=== PATIENT | female | born 1970 | race Caucasian/White ===

== ENCOUNTER 2023-09-23 14:01 | Inpatient (IN) | payer MEDICAID, MEDICARE, OTHER ==
--- NOTE | 2023-09-23 14:17 | ED ---
General Adult HPI - General Stated complaint: Mental Health/Overdose Time Seen by Provider: 09/23/23 14:10 Source: patient, RN notes reviewed Mode of arrival: EMS Limitations: no limitations - History of Present Illness Initial comments: Patient is a 52-year-old female present to the emergency department with overdose. Patient states she has been depressed. Patient admits to taking 10 of her trazodone last night. Patient admits this was attempt to harm herself. Patient also did abrade her left arm and right leg. Unclear last tetanus immunization. No homicidal thoughts. No hallucinations. Patient states she does not drink alcohol, patient reports that she is sober. - Related Data Home Medications Medication Instructions Recorded Confirmed Albuterol Sulfate [Albuterol 2 puff INHALATION RT-QID PRN 09/23/23 09/23/23 Sulfate Hfa] Brexpiprazole [Rexulti] 4 mg PO DAILY 09/23/23 09/23/23 Dextroamphetamine/Amphetamine 20 mg PO BID 09/23/23 09/23/23 [Adderall] Ergocalciferol [Vitamin D2 (1250 1,250 mcg PO WEEKLY 09/23/23 09/23/23 Mcg = 10230 Iu)] Ferrous Sulfate [Feosol] 325 mg PO DAILY 09/23/23 09/23/23 Gabapentin 400 mg PO DAILY@1400 09/23/23 09/23/23 Gabapentin [Neurontin] 800 mg PO Q12H 09/23/23 09/23/23 Levothyroxine Sodium [Synthroid] 88 mcg PO DAILY 09/23/23 09/23/23 Meloxicam [Mobic] 15 mg PO DAILY PRN 09/23/23 09/23/23 OLANZapine [ZyPREXA] 5 mg PO HS 09/23/23 09/23/23 Pantoprazole Sodium [Protonix] 40 mg PO DAILY 09/23/23 09/23/23 Prazosin [Minipress] 5 mg PO BID 09/23/23 09/23/23 Propranolol HCl 80 mg PO BID 09/23/23 09/23/23 Tolterodine ER [Detrol LA] 4 mg PO DAILY 09/23/23 09/23/23 clonazePAM [KlonoPIN] 1 mg PO BID PRN 09/23/23 09/23/23 Allergies Allergy/AdvReac Type Severity Reaction Status Date / Time codeine Allergy Itching Verified 09/23/23 21:47 Review of Systems ROS Statement: Those systems with pertinent positive or pertinent negative responses have been documented in the HPI. ROS Other: All systems not noted in ROS Statement are negative. Constitutional: Denies: fever Eyes: Denies: eye pain ENT: Denies: ear pain Respiratory: Denies: cough Cardiovascular: Denies: chest pain Endocrine: Denies: fatigue Psychiatric: Reports: depression, suicidal thoughts Past Medical History Additional Past Medical History / Comment(s): tachycardia History of Any Multi-Drug Resistant Organisms: None Reported Past Surgical History: No Surgical Hx Reported Past Psychological History: Anxiety, Bipolar, Depression, PTSD Smoking Status: Never smoker Past Alcohol Use History: None Reported, Occasional Past Drug Use History: Marijuana General Exam Limitations: no limitations General appearance: alert Head exam: Present: normocephalic Eye exam: Present: normal appearance, PERRL Neck exam: Present: normal inspection Respiratory exam: Present: normal lung sounds bilaterally Cardiovascular Exam: Present: regular rate, normal rhythm GI/Abdominal exam: Present: soft. Absent: tenderness Extremities exam: Present: normal inspection Neurological exam: Present: alert. Absent: motor sensory deficit Psychiatric exam: Present: depressed Skin exam: Present: abrasion (Superficial left arm and right thigh) Course Vital Signs 09/23/23 09/23/23 14:07 21:44 Temperature 98.1 F Pulse Rate 86 62 Respiratory 16 16 Rate Blood Pressure 105/76 102/73 O2 Sat by Pulse 96 97 Oximetry EKG Findings - EKG Results: EKG: interpreted by ERMD (QTc 401), sinus rhythm, normal axis, normal QRS, normal ST/T Medical Decision Making - Medical Decision Making Was pt. sent in by a medical professional or institution (, PA, THERMIT WELDING MACHINE OPERATOR, urgent care, hospital, or [facility]...) When possible be specific @ -No Did you speak to anyone other than the patient for history (EMS, parent, family, police, friend...)? What history was obtained from this source @ -No Did you review nursing and triage notes (agree or disagree)? Why? @ -I reviewed and agree with nursing and triage notes Were old charts reviewed (outside hosp., previous admission, EMS record, old EKG, old radiological studies, urgent care reports/EKG's, [facility] records)? Report findings @ -No old charts were reviewed Differential Diagnosis (chest pain, altered mental status, abdominal pain women, abdominal pain men, vaginal bleeding, weakness, fever, dyspnea, syncope, headache, dizziness, GI bleed, back pain, seizure, CVA, palpatations, mental health, musculoskeletal)? @ -Differential Mental Health Depression, anxiety, bipolar, psychosis, schizophrenia, borderline personality, situational depression, adjustment disorder, behavioral disorder, brain tumor, malingering, substance abuse, encephalopathy, medication reaction, dementia, hyp othyroidism, degenerative neurologic disorder, lupus.... This is not meant to be all-inclusive list EKG interpreted by me (3pts min.). @ -As above X-rays interpreted by me (1pt min.). @ -None done CT interpreted by me (1pt min.). @ -None done U/S interpreted by me (1pt. min.). @ -None done What testing was considered but not performed or refused? (CT, X-rays, U/S, labs)? Why? @ -None What meds were considered but not given or refused? Why? @ -None Did you discuss the management of the patient with other professionals (professionals i.e. , PA, THERMIT WELDING MACHINE OPERATOR, lab, RT, psych nurse, social insurance specialist, cable splicer helper, teacher, staff weapons officer, disability case manager)? Give summary @ -Mental health work Was smoking cessation discussed for >3mins.? @ -No Was critical care preformed (if so, how long)? @ -No Were there social determinants of health that impacted care today? How? (Homelessness, low income, unemployed, alcoholism, drug addiction, transportation, low edu. Level, literacy, decrease access to med. care, halfway, rehab)? @ -No Was there de-escalation of care discussed even if they declined (Discuss DNR or withdrawal of care, Hospice)? DNR status @ -No What co-morbidities impacted this encounter? (DM, HTN, Smoking, COPD, CAD, Cancer, CVA, ARF, Chemo, Hep., AIDS, mental health diagnosis, sleep apnea, m orbid obesity)? @ -None Was patient admitted / discharged? Hospital course, mention meds given and route, prescriptions, significant lab abnormalities, going to OR and other pertinent info. @ -Patient medically cleared for mental health evaluation Undiagnosed new problem with uncertain prognosis? @ -No Drug Therapy requiring intensive monitoring for toxicity (Heparin, Nitro, Insulin, Cardizem)? @ -No Were any procedures done? @ -No Diagnosis/symptom? @ -Depression, trazodone overdose Acute, or Chronic, or Acute on Chronic? @ -Acute, acute Uncomplicated (without systemic symptoms) or Complicated (systemic symptoms)? @ -Default Side effects of treatment? @ -No Exacerbation, Progression, or Severe Exacerbation? @ -No Poses a threat to life or bodily function? How? (Chest pain, [place], [place], pneumonia, PE, COPD, DKA, ARF, appy, cholecystitis, CVA, Diverticulitis, Homicidal, Suicidal, threat to staff... and all critical care pts) @ -Threat with overdose - Lab Data Result diagrams: 09/23/23 14:31 09/23/23 14:31 Lab Results 09/23/23 09/23/23 09/23/23 Range/Units 14:31 14:31 14:31 WBC 5.9 (3.8-10.6) k/uL RBC 4.23 (3.80-5.40) m/uL Hgb 11.2 L (11.4-16.0) gm/dL Hct 34.7 (34.0-46.0) % MCV 82.0 (80.0-100.0) fL MCH 26.4 (25.0-35.0) pg MCHC 32.1 (31.0-37.0) g/dL RDW 15.0 (11.5-15.5) % Plt Count 240 (150-450) k/uL MPV 7.5 Neutrophils % 60 % Lymphocytes % 29 % Monocytes % 5 % Eosinophils % 4 % Basophils % 1 % Neutrophils # 3.5 (1.3-7.7) k/uL Lymphocytes # 1.7 (1.0-4.8) k/uL Monocytes # 0.3 (0-1.0) k/uL Eosinophils # 0.2 (0-0.7) k/uL Basophils # 0.1 (0-0.2) k/uL PT 11.6 (10.0-12.5) sec INR 1.1 (<1.2) Sodium (137-145) mmol/L Potassium (3.5-5.1) mmol/L Chloride (98-107) mmol/L Carbon Dioxide (22-30) mmol/L Anion Gap mmol/L BUN (7-17) mg/dL Creatinine (0.52-1.04) mg/dL Est GFR (CKD-EPI)AfAm (>60 ml/min/1.73 sqM) Est GFR (CKD-EPI)NonAf (>60 ml/min/1.73 sqM) Glucose (74-99) mg/dL Estimated Ave Glu mg/dL mg/dL Hemoglobin A1c (<=6.0) % Calcium (8.4-10.2) mg/dL Total Bilirubin (0.2-1.3) mg/dL AST (14-36) U/L ALT (4-34) U/L Alkaline Phosphatase (38-126) U/L Total Protein (6.3-8.2) g/dL Albumin (3.5-5.0) g/dL Triglycerides (0.00-149.00) mg/dL Cholesterol (0.00-200.00) mg/dL LDL Cholesterol, Calc (0.0-131.0) mg/dL VLDL Cholesterol, Calc (5.00-40.00) mg/dL HDL Cholesterol (40.00-60.00) mg/dL Cholesterol/HDL Ratio Ratio Urine Color Urine Appearance (Clear) Urine pH (5.0-8.0) Ur Specific [place] (1.001-1.035) Urine Protein (Negative) Urine Glucose (UA) (Negative) Urine Ketones (Negative) Urine Blood (Negative) Urine Nitrite (Negative) Urine Bilirubin (Negative) Urine Urobilinogen (<2.0) mg/dL Ur Leukocyte Esterase (Negative) Urine HCG, Qual Not Detected (Not Detectd) Salicylates mg/dL Urine Opiates Screen (NotDetected) Ur Oxycodone Screen (NotDetected) Urine Methadone Screen (NotDetected) Acetaminophen ug/mL Ur Barbiturates Screen (NotDetected) U Tricyclic Antidepress (NotDetected) Ur Phencyclidine Scrn (NotDetected) Ur Amphetamines Screen (NotDetected) U Methamphetamines Scrn (NotDetected) U Benzodiazepines Scrn (NotDetected) Urine Cocaine Screen (NotDetected) U Marijuana (THC) Screen (NotDetected) Serum Alcohol mg/dL SARS-CoV-2 (PCR) (Not Detectd) 09/23/23 09/23/23 09/23/23 Range/Units 14:31 14:31 14:31 WBC (3.8-10.6) k/uL RBC (3.80-5.40) m/uL Hgb (11.4-16.0) gm/dL Hct (34.0-46.0) % MCV (80.0-100.0) fL MCH (25.0-35.0) pg MCHC (31.0-37.0) g/dL RDW (11.5-15.5) % Plt Count (150-450) k/uL MPV Neutrophils % % Lymphocytes % % Monocytes % % Eosinophils % % Basophils % % Neutrophils # (1.3-7.7) k/uL Lymphocytes # (1.0-4.8) k/uL Monocytes # (0-1.0) k/uL Eosinophils # (0-0.7) k/uL Basophils # (0-0.2) k/uL PT (10.0-12.5) sec INR (<1.2) Sodium 137 (137-145) mmol/L Potassium 4.3 (3.5-5.1) mmol/L Chloride 107 (98-107) mmol/L Carbon Dioxide 28 (22-30) mmol/L Anion Gap 2 mmol/L BUN 15 (7-17) mg/dL Creatinine 0.82 (0.52-1.04) mg/dL Est GFR (CKD-EPI)AfAm >90 (>60 ml/min/1.73 sqM) Est GFR (CKD-EPI)NonAf 83 (>60 ml/min/1.73 sqM) Glucose 86 (74-99) mg/dL Estimated Ave Glu mg/dL mg/dL Hemoglobin A1c (<=6.0) % Calcium 8.7 (8.4-10.2) mg/dL Total Bilirubin 0.7 (0.2-1.3) mg/dL AST 22 (14-36) U/L ALT 16 (4-34) U/L Alkaline Phosphatase 82 (38-126) U/L Total Protein 6.2 L (6.3-8.2) g/dL Albumin 3.9 (3.5-5.0) g/dL Triglycerides 112.00 (0.00-149.00) mg/dL Cholesterol 212.00 H (0.00-200.00) mg/dL LDL Cholesterol, Calc 119.1 (0.0-131.0) mg/dL VLDL Cholesterol, Calc 22.40 (5.00-40.00) mg/dL HDL Cholesterol 70.50 H (40.00-60.00) mg/dL Cholesterol/HDL Ratio 3.01 Ratio Urine Color Urine Appearance (Clear) Urine pH (5.0-8.0) Ur Specific [place] (1.001-1.035) Urine Protein (Negative) Urine Glucose (UA) (Negative) Urine Ketones (Negative) Urine Blood (Negative) Urine Nitrite (Negative) Urine Bilirubin (Negative) Urine Urobilinogen (<2.0) mg/dL Ur Leukocyte Esterase (Negative) Urine HCG, Qual (Not Detectd) Salicylates <1.0 mg/dL Urine Opiates Screen Not Detected (NotDetected) Ur Oxycodone Screen Not Detected (NotDetected) Urine Methadone Screen Not Detected (NotDetected) Acetaminophen <10.0 ug/mL Ur Barbiturates Screen Not Detected (NotDetected) U Tricyclic Antidepress Not Detected (NotDetected) Ur Phencyclidine Scrn Not Detected (NotDetected) Ur Amphetamines Screen Not Detected (NotDetected) U Methamphetamines Scrn Not Detected (NotDetected) U Benzodiazepines Scrn Not Detected (NotDetected) Urine Cocaine Screen Not Detected (NotDetected) U Marijuana (THC) Screen Detected H (NotDetected) Serum Alcohol <10 mg/dL SARS-CoV-2 (PCR) (Not Detectd) 09/23/23 09/23/23 09/23/23 Range/Units 14:31 14:31 19:00 WBC (3.8-10.6) k/uL RBC (3.80-5.40) m/uL Hgb (11.4-16.0) gm/dL Hct (34.0-46.0) % MCV (80.0-100.0) fL MCH (25.0-35.0) pg MCHC (31.0-37.0) g/dL RDW (11.5-15.5) % Plt Count (150-450) k/uL MPV Neutrophils % % Lymphocytes % % Monocytes % % Eosinophils % % Basophils % % Neutrophils # (1.3-7.7) k/uL Lymphocytes # (1.0-4.8) k/uL Monocytes # (0-1.0) k/uL Eosinophils # (0-0.7) k/uL Basophils # (0-0.2) k/uL PT (10.0-12.5) sec INR (<1.2) Sodium (137-145) mmol/L Potassium (3.5-5.1) mmol/L Chloride (98-107) mmol/L Carbon Dioxide (22-30) mmol/L Anion Gap mmol/L BUN (7-17) mg/dL Creatinine (0.52-1.04) mg/dL Est GFR (CKD-EPI)AfAm (>60 ml/min/1.73 sqM) Est GFR (CKD-EPI)NonAf (>60 ml/min/1.73 sqM) Glucose (74-99) mg/dL Estimated Ave Glu mg/dL 97 mg/dL Hemoglobin A1c 5.0 (<=6.0) % Calcium (8.4-10.2) mg/dL Total Bilirubin (0.2-1.3) mg/dL AST (14-36) U/L ALT (4-34) U/L Alkaline Phosphatase (38-126) U/L Total Protein (6.3-8.2) g/dL Albumin (3.5-5.0) g/dL Triglycerides (0.00-149.00) mg/dL Cholesterol (0.00-200.00) mg/dL LDL Cholesterol, Calc (0.0-131.0) mg/dL VLDL Cholesterol, Calc (5.00-40.00) mg/dL HDL Cholesterol (40.00-60.00) mg/dL Cholesterol/HDL Ratio Ratio Urine Color Colorless Urine Appearance Clear (Clear) Urine pH 7.5 (5.0-8.0) Ur Specific [place] 1.010 (1.001-1.035) Urine Protein Negative (Negative) Urine Glucose (UA) Negative (Negative) Urine Ketones Negative (Negative) Urine Blood Negative (Negative) Urine Nitrite Negative (Negative) Urine Bilirubin Negative (Negative) Urine Urobilinogen <2.0 (<2.0) mg/dL Ur Leukocyte Esterase Negative (Negative) Urine HCG, Qual (Not Detectd) Salicylates mg/dL Urine Opiates Screen (NotDetected) Ur Oxycodone Screen (NotDetected) Urine Methadone Screen (NotDetected) Acetaminophen ug/mL Ur Barbiturates Screen (NotDetected) U Tricyclic Antidepress (NotDetected) Ur Phencyclidine Scrn (NotDetected) Ur Amphetamines Screen (NotDetected) U Methamphetamines Scrn (NotDetected) U Benzodiazepines Scrn (NotDetected) Urine Cocaine Screen (NotDetected) U Marijuana (THC) Screen (NotDetected) Serum Alcohol mg/dL SARS-CoV-2 (PCR) Not Detected (Not Detectd) Disposition Clinical Impression: Depression, Overdose of trazodone Disposition: TRANSFER TO PSYCH HOSP/UNIT Is patient prescribed a controlled substance at d/c from ED?: No
[2023-09-23 14:53] LABS: Basophils # (A) 0.1 k/uL (0-0.2); Basophils % (A) 1 %; Eosinophils # (A) 0.2 k/uL (0-0.7); Eosinophils % (A) 4 %; HCT 34.7 % (34.0-46.0); HGB 11.2 gm/dL (11.4-16.0); Lymphocytes # (A) 1.7 k/uL (1.0-4.8); Lymphocytes % (A) 29 %; MCH 26.4 pg (25.0-35.0); MCHC 32.1 g/dL (31.0-37.0); Mean Platelet Volume 7.5; Monocytes # (A) 0.3 k/uL (0-1.0); Monocytes % (A) 5 %; Neutrophils # (A) 3.5 k/uL (1.3-7.7); Neutrophils % (A) 60 %; Platelet Count 240 k/uL (150-450); RBC 4.23 m/uL (3.80-5.40); WBC 5.9 k/uL (3.8-10.6)
[2023-09-23 14:58] LABS: INR 1.1 (<1.2); Prothrombin Time 11.6 sec (10.0-12.5)
[2023-09-23 15:01] LABS: ALT 16 U/L (4-34); AST 22 U/L (14-36); Acetaminophen <10.0 ug/mL; African American GFR (CKD) >90 (>60 ml/min/1.73 sqM); Albumin 3.9 g/dL (3.5-5.0); Alcohol <10 mg/dL; Alkaline Phosphatase 82 U/L (38-126); Anion Gap 2 mmol/L; Blood Urea Nitrogen 15 mg/dL (7-17); Calcium 8.7 mg/dL (8.4-10.2); Carbon Dioxide 28 mmol/L (22-30); Chloride 107 mmol/L (98-107); Glucose 86 mg/dL (74-99); Non-African American GFR(CKD) 83 (>60 ml/min/1.73 sqM); Potassium 4.3 mmol/L (3.5-5.1); Salicylate <1.0 mg/dL; Sodium 137 mmol/L (137-145); Total Bilirubin 0.7 mg/dL (0.2-1.3); Total Protein 6.2 g/dL (6.3-8.2)
[2023-09-23 15:04] LABS: Amphetamine Screen,Urine Not Detected (NotDetected); Barbiturate Screen,Urine Not Detected (NotDetected); Benzodiazepines Screen,Urine Not Detected (NotDetected); Cocaine Screen,Urine Not Detected (NotDetected); Methadone Screen, Urine Not Detected (NotDetected); Opiate Screen,Urine Not Detected (NotDetected); Oxycodone Screen, Urine Not Detected (NotDetected); Phencyclidine Screen,Urine Not Detected (NotDetected); Tricyclic Antidepressant,Urine Not Detected (NotDetected); Urn Cannabinoid Scrn Detected (NotDetected)
[2023-09-23] MEDS: DIPH,PERTUS(ACELL)TETVAC-LF 0.5 ML VIAL IM ONE (21:43)
[2023-09-23] MEDS ORDERED: ALBUTEROL INHALER 60 PUFF/8 GM INHALER (MHU) INHALATION PRN (23:55)
[2023-09-23] MEDS ORDERED: ACETAMINOPHEN TAB 325 MG TAB PO PRN (23:57)
[2023-09-23] MEDS ORDERED: MAGNESIUM HYDROXIDE 2,400 MG/30 ML CUP PO PRN (23:57)
[2023-09-24] MEDS: LEVOTHYROXINE 88 MCG TAB PO SCH (05:54)
[2023-09-24 08:30] LABS: Appearance,Urine Clear (Clear); Bilirubin,Urine Negative (Negative); Blood,Urine Negative (Negative); Color,Urine Colorless; Glucose,Urine (UA) Negative (Negative); Ketones,Urine Negative (Negative); Leukocyte Esterase,Urine Negative (Negative); Nitrite,Urine Negative (Negative); PH, Urine 7.5 (5.0-8.0); Protein,Urine Negative (Negative); Urobilinogen,Urine <2.0 mg/dL (<2.0)
[2023-09-24] MEDS: NON FORMULARY DRUG (Brexpiprazole [Rexulti] 4 MG Tablet) PO SCH (09:17)
[2023-09-24] MEDS: FERROUS SULFATE 325 MG TAB PO SCH (09:18)
[2023-09-24] MEDS: PANTOPRAZOLE 40 MG TABLET PO SCH (09:19)
[2023-09-24] MEDS: OXYBUTYNIN 10 MG TAB.ER.24 PO SCH (09:19)
[2023-09-24] MEDS: PRAZOSIN 1 MG CAP PO SCH (09:19)
[2023-09-24] MEDS: GABAPENTIN 400 MG CAP PO SCH ×3 (09:19→20:43)
[2023-09-24] MEDS: PROPRANOLOL 40 MG TAB PO SCH (09:20)
[2023-09-24] MEDS ORDERED: NICOTINE GUM (POLACRILEX) 2 MG GUM BUCCAL PRN (10:38)
[2023-09-24 11:31] LABS: Chol/HDL Ratio 3.01 Ratio; LDL Cholesterol,Calculated 119.1 mg/dL (0.0-131.0)
[2023-09-24] MEDS: clonazePAM 1 MG TAB PO PRN (17:43)
--- NOTE | 2023-09-24 20:57 | P.HP ---
Psychiatric H&P - . H&P Date: 09/24/23 History & Physical: Allergies Allergy/AdvReac Type Severity Reaction Status Date / Time codeine Allergy Itching Verified 09/23/23 21:47 Vital Signs Temp 96.6 F L 09/24/23 00:57 Pulse 104 H 09/24/23 09:17 Resp 18 09/24/23 00:57 BP 103/60 09/24/23 09:17 Pulse Ox 98 09/24/23 09:19 FiO2 Intake & Output 09/24/23 09/24/23 09/25/23 06:59 18:59 06:59 Weight 73.964 kg Laboratory Last Values WBC 5.9 k/uL (3.8-10.6) 09/23/23 14:31 RBC 4.23 m/uL (3.80-5.40) 09/23/23 14:31 Hgb 11.2 gm/dL (11.4-16.0) L 09/23/23 14:31 Hct 34.7 % (34.0-46.0) 09/23/23 14:31 MCV 82.0 fL (80.0-100.0) 09/23/23 14:31 MCH 26.4 pg (25.0-35.0) 09/23/23 14:31 MCHC 32.1 g/dL (31.0-37.0) 09/23/23 14:31 RDW 15.0 % (11.5-15.5) 09/23/23 14:31 Plt Count 240 k/uL (150-450) 09/23/23 14:31 MPV 7.5 09/23/23 14:31 Neutrophils % 60 % 09/23/23 14:31 Lymphocytes % 29 % 09/23/23 14:31 Monocytes % 5 % 09/23/23 14:31 Eosinophils % 4 % 09/23/23 14:31 Basophils % 1 % 09/23/23 14:31 Neutrophils # 3.5 k/uL (1.3-7.7) 09/23/23 14:31 Lymphocytes # 1.7 k/uL (1.0-4.8) 09/23/23 14:31 Monocytes # 0.3 k/uL (0-1.0) 09/23/23 14:31 Eosinophils # 0.2 k/uL (0-0.7) 09/23/23 14:31 Basophils # 0.1 k/uL (0-0.2) 09/23/23 14:31 PT 11.6 sec (10.0-12.5) 09/23/23 14:31 INR 1.1 (<1.2) 09/23/23 14:31 Sodium 137 mmol/L (137-145) 09/23/23 14:31 Potassium 4.3 mmol/L (3.5-5.1) 09/23/23 14:31 Chloride 107 mmol/L (98-107) 09/23/23 14:31 Carbon Dioxide 28 mmol/L (22-30) 09/23/23 14:31 Anion Gap 2 mmol/L 09/23/23 14:31 BUN 15 mg/dL (7-17) 09/23/23 14:31 Creatinine 0.82 mg/dL (0.52-1.04) 09/23/23 14:31 Est GFR (CKD-EPI)AfAm >90 (>60 ml/min/1.73 sqM) 09/23/23 14:31 Est GFR (CKD-EPI)NonAf 83 (>60 ml/min/1.73 sqM) 09/23/23 14:31 Glucose 86 mg/dL (74-99) 09/23/23 14:[address] Glu mg/dL 97 mg/dL 09/23/23 14:31 Hemoglobin A1c 5.0 % (<=6.0) 09/23/23 14:31 Calcium 8.7 mg/dL (8.4-10.2) 09/23/23 14:31 Total Bilirubin 0.7 mg/dL (0.2-1.3) 09/23/23 14:31 AST 22 U/L (14-36) 09/23/23 14:31 ALT 16 U/L (4-34) 09/23/23 14:31 Alkaline Phosphatase 82 U/L (38-126) 09/23/23 14:31 Total Protein 6.2 g/dL (6.3-8.2) L 09/23/23 14:31 Albumin 3.9 g/dL (3.5-5.0) 09/23/23 14:31 Triglycerides 112.00 mg/dL (0.00-149.00) 09/23/23 14: Cholesterol 212.00 mg/dL (0.00-200.00) H 09/23/23 14:31 LDL Cholesterol, Calc 119.1 mg/dL (0.0-131.0) 09/23/23 14:31 VLDL Cholesterol, Calc 22.40 mg/dL (5.00-40.00) 09/23/23 14: HDL Cholesterol 70.50 mg/dL (40.00-60.00) H 09/23/23 14:31 Cholesterol/HDL Ratio 3.01 Ratio 09/23/23 14:31 Urine Color Colorless 09/23/23 14:31 Urine Appearance Clear (Clear) 09/23/23 14: Urine pH 7.5 (5.0-8.0) 09/23/23 14: Ur Specific [place] 1.010 (1.001-1.035) 09/23/23 14:31 Urine Protein Negative (Negative) 09/23/23 14:31 Urine Glucose (UA) Negative (Negative) 09/23/23 14:31 Urine Ketones Negative (Negative) 09/23/23 14:31 Urine Blood Negative (Negative) 09/23/23 14:31 Urine Nitrite Negative (Negative) 09/23/23 14:31 Urine Bilirubin Negative (Negative) 09/23/23 14: Urine Urobilinogen <2.0 mg/dL (<2.0) 09/23/23 14:31 Ur Leukocyte Esterase Negative (Negative) 09/23/23 14:31 Urine HCG, Qual Not Detected (Not Detectd) 09/23/23 14:31 Salicylates <1.0 mg/dL 09/23/23 14:31 Urine Opiates Screen Not Detected (NotDetected) 09/23/23 14:31 Ur Oxycodone Screen Not Detected (NotDetected) 09/23/23 14:31 Urine Methadone Screen Not Detected (NotDetected) 09/23/23 14:31 Acetaminophen <10.0 ug/mL 09/23/23 14:31 Ur Barbiturates Screen Not Detected (NotDetected) 09/23/23 14:31 U Tricyclic Antidepress Not Detected (NotDetected) 09/23/23 14:31 Ur Phencyclidine Scrn Not Detected (NotDetected) 09/23/23 14:31 Ur Amphetamines Screen Not Detected (NotDetected) 09/23/23 14:31 U Methamphetamines Scrn Not Detected (NotDetected) 09/23/23 14:31 U Benzodiazepines Scrn Not Detected (NotDetected) 09/23/23 14:31 Urine Cocaine Screen Not Detected (NotDetected) 09/23/23 14:31 U Marijuana (THC) Screen Detected (NotDetected) H 09/23/23 14:31 Serum Alcohol <10 mg/dL 09/23/23 14:31 SARS-CoV-2 (PCR) Not Detected (Not Detectd) 09/23/23 19:00 09/24/23 20:57 Psychiatric Evaluation Identifying Data: Ms. Atkinson is a 52 years old, single, white female, who lives in a house with her partner. Chief Complaint: I took overdose of pills History of Psychiatric Illness- The patient noted that she was in the hospital 2 months ago for depression. She was in the hospital for 10 days. The patient noted that she does not know what made her take overdose of pills. She attributed to domestic issues. The patient reported that she was feeling very sad, not sleeping, lost appetite, loss of interest, social isolation, crying, tired, hopeless, and helpless. The patient t ook overdose of Trazodone. The patient does not know who called the police. The police came to her home and brought her to the ER. The patient noted that she has been depressed since age 16. The patient noted that she did not receive any help till age 31. She was in out-pt treatment. She saw a counselor and a psychiatrist. At age 36 she was admitted to the hospital for depression. She has had 5-6 admissions since then. All these admissions were for Depression. She never experienced symptoms of hearing voices or feeling paranoid. She reported 2-3 suicidal behavior by cutting herself or taking overdose of pills. She reported taking Prozac, Depakote, Zoloft, Effexor, Paxil, Risperdal, Cymbalta, Klonopin, and Adderall. The patient noted that Comfort Line works best for her depression. She has been diagnosed with PTSD, Bipolar disorder, Depression. Past Psychiatric History: As stated above. Past Medication History: As stated above. Leading questions: The patient admitted to Depression and Anxiety. Denied SI or HI. 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 Her longest sobriety is for 5 years. She smokes marijuana occasionally. Tobacco use: None. Past Medical history: Tachycardia. Family History of Psychiatric Disorder: Mother and maternal grand-mother suffer from depression. No h/o suicide or homicide in blood relatives. Social History and Family History: The patient was born and raised in [place], [place]. She has no siblings. She got her GED. 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 Never . Has no children. OTC: None. Allergies: Codeine. Objective: MSE: Alert and attentive. Orientation times three Dressed and Groomed: Appropriately. Pleasant and cooperative. Psychomotor Activity: Normal. Speech: Normal in tone, quality, and quantity. Mood: Depressed and anxious. Affect; Sad and subdued. SI or HI: None. Perceptual disturbance: None. Thought Content: No paranoia or other delusional thinking noted. Thought Process: Normal. Cognition: Intact Judgment and Insight: Poor AIMS: Normal Labs: Available labs reviewed. Diagnosis: Major depressive disorder, severe, recurrent. PTSD Plan and Recommendations: Continue current Medications. Monitor MS and side effects of medications and adjust medications accordingly. Provide supportive psychotherapy and psychoeducation. The patient provided psychoeducation. Te patient provided with substance abuse counselling and advised to attend AA/NA The patient to attend partida [facility]. CBC with Diff, CMP, TSH, Lipid Profile, HbA1c, EKG, Test ordered. Medication Consent with explanation of risk/benefits and side effects: Explained and obtained.
[2023-09-24] MEDS: MAG HYDROX/AL HYDROX/SIMETH 355 ML BOTTLE PO PRN (23:40)
--- NOTE | 2023-09-25 13:38 | P.PN ---
Progress Note - Text Progress Note Date: 09/25/23 Follow-up Mediation Review Chief Complaint: I am too tired Subjective: The patient noted that she was up all night because her roommate kept getting up every hour. She is catching on her sleep and feeling tired. She reported doing better than yesterday. The patient had no side effects. Complaint since yesterday: No new complaints today. The patient has did not group today but she intends to attend later. The patient participation is limited. The interaction with staff and peers is limited. The patient is compliant with medications. recommendations. Leading questions: The patient admitted to Depression and Anxiety. Denied SI or HI. Denied symptoms consistent with psychosis Sleep and Appetite: Fair. Change in family/ living/job/financial/daily routine: No change. Change in medical condition: the patient seems to be having some questionable aspiration after the overdose. She has been ordered chest X-ray by her PCP, who is on staff here. Change in medications: No change. Side effects from Medications: None. Allergies: No change. Objective- MSE: Alert and attentive. Orientation times three. Dressed and Groomed: Appropriately. Pleasant and cooperative. Psychomotor Activity: Normal. Speech: Normal in tone, quality, and quantity. Mood: Depressed and anxious. Affect: Consistent with mood. SI or HI: None. Perceptual disturbance: None. Thought Content: No paranoia or other delusional thinking noted. Thought Process: Normal. Cognition: Intact Judgment and Insight: Good AIMS: Normal. Labs: No new labs. Diagnosis: Plan and Recommendations: Continue current Medications. Monitor MS and side effects of medications and adjust medications accordingly. Provide supportive psychotherapy. The patient provided psychoeducation and advised The patient provided Substance abuse counseling. Smoke cessation therapy. The patient to attend partida activities. CBC with Diff, CMP, TSH, Lipid Profile, HbA1c, EKG, Test ordered. Medication Consent with explanation of risk/benefits and side effects: Explained and obtained.
--- NOTE | 2023-09-25 18:18 | P.HPIM ---
History of Present Illness H&P Date: 09/25/23 Chief Complaint: Suicidal, depression This is a 52-year-old female who presented to the ER with depression and overdosed. Reports she took 10 trazodone pills. Reports she has been overwhelmed with personal and financial stress. Does not recall if she passed out. reports she woke up to the police in her house and was transferred to our ER. Toxicology screen reported THC, less than 1 of salicylates , less than 10 of acetaminophen and less than 10 alcohol .denies chest pain, palpitations or shortness of breath. Denies cough, congestion. Maintaining O2 sats in the 90s on room air. Viral studies negative. Hemoglobin, electrolytes and renal function stable. Hemoglobin A1c 5. reports positive diet intake, mild nausea, no emesis. Complains of carpal tunnel syndrome-neuropathy. Tylenol and Neurontin in place. afebrile. No bradycardia. Review of Systems ROS Statement: Those systems with pertinent positive or pertinent negative responses have been documented in the HPI. ROS Other: All systems not noted in ROS Statement are negative. All systems: negative Constitutional: Denies chills, Denies fever Eyes: denies blurred vision, denies pain Ears, nose, mouth and throat: Denies headache, Denies sore throat Cardiovascular: Denies chest pain, Denies shortness of breath Respiratory: Denies cough Gastrointestinal: Denies abdominal pain, Denies diarrhea, Denies nausea, Denies vomiting Genitourinary: Denies dysuria, Denies hematuria Musculoskeletal: Denies myalgias Integumentary: Denies pruritus, Denies rash Neurological: Denies numbness, Denies weakness Psychiatric: Reports anxiety, Reports depression, Reports suicidal ideation Endocrine: Denies fatigue, Denies weight change Past Medical History Additional Past Medical History / Comment(s): tachycardia History of Any Multi-Drug Resistant Organisms: None Reported Past Surgical History: No Surgical Hx Reported Additional Past Surgical History / Comment(s): Bariatric Surgery 2019 Past Anesthesia/Blood Transfusion Reactions: No Reported Reaction Past Psychological History: Anxiety, Bipolar, Depression, PTSD Smoking Status: Never smoker Past Alcohol Use History: None Reported, Occasional Past Drug Use History: Marijuana Medications and Allergies Home Medications Medication Instructions Recorded Confirmed Type Albuterol Sulfate [Albuterol 2 puff INHALATION RT-QID PRN 09/23/23 09/23/23 History Sulfate Hfa] Brexpiprazole [Rexulti] 4 mg PO DAILY 09/23/23 09/23/23 History Dextroamphetamine/Amphetamine 20 mg PO BID 09/23/23 09/23/23 History [Adderall] Ergocalciferol [Vitamin D2 (1250 1,250 mcg PO WEEKLY 09/23/23 09/23/23 History Mcg = 96772 Iu)] Ferrous Sulfate [Feosol] 325 mg PO DAILY 09/23/23 09/23/23 History Gabapentin 400 mg PO DAILY@1400 09/23/23 09/23/23 History Gabapentin [Neurontin] 800 mg PO Q12H 09/23/23 09/23/23 History Levothyroxine Sodium [Synthroid] 88 mcg PO DAILY 09/23/23 09/23/23 History Meloxicam [Mobic] 15 mg PO DAILY PRN 09/23/23 09/23/23 History OLANZapine [ZyPREXA] 5 mg PO HS 09/23/23 09/23/23 History Pantoprazole Sodium [Protonix] 40 mg PO DAILY 09/23/23 09/23/23 History Prazosin [Minipress] 5 mg PO BID 09/23/23 09/23/23 History Propranolol HCl 80 mg PO BID 09/23/23 09/23/23 History Tolterodine ER [Detrol LA] 4 mg PO DAILY 09/23/23 09/23/23 History clonazePAM [KlonoPIN] 1 mg PO BID PRN 09/23/23 09/23/23 History Allergies Allergy/AdvReac Type Severity Reaction Status Date / Time codeine Allergy Itching Verified 09/23/23 21:47 Physical Exam General: well nourished, well developed, NAD. Teary-eyed. vitals reviewed Eyes: PERRL, EOMI, conjunctiva normal HENT: normocephalic, mucus membranes moist Neck: supple, no JVD Lungs: normal respiratory effort, no wheezes or rales CV: Regular rate and rhythm, no murmur. Peripheral pulses 2+ Abdomen: soft, nondistended, no organomegaly Lymph: no cervical or axillary LAD Skin: warm and dry. Neuro: A&Ox3, depressed mood and affect. Results CBC & Chem 7: 09/23/23 14:31 09/23/23 14:31 Thrombosis Risk Factor Assmnt - Choose All That Apply Any of the Below Risk Factors Present?: Yes Each Factor Represents 1 point: Age 41-60 years, Obesity (BMI >25) Other Risk Factors: No Thrombosis Risk Factor Assessment Total Risk Factor Score: 2 Thrombosis Risk Factor Assessment Level: Low Risk Assessment and Plan Assessment: Suicidal, suicide attempt with overdose of trazodone Major depressive disorder, severe, recurrent Plan: Continue on current medication resume ,monitoring and symptomatic treatment. O2 sat this morning 92% on room air, chest x-ray ordered. PPI in place for GI prophylaxis. The impression and plan of care has been dictated as directed. : I performed a history and examination of this patient, discussed the same with the dictator. I agree with the dictator's note ,documented as a scribe. Any additional findings or plans will be noted.
[2023-09-26] MEDS: IBUPROFEN 600 MG TAB PO PRN (07:05)
--- NOTE | 2023-09-26 07:28 | XR ---
EXAMINATION TYPE: XR chest 1V portable DATE OF EXAM: 09/25/2023 COMPARISON: NONE HISTORY: Hypoxia TECHNIQUE: Single frontal view of the chest is obtained. FINDINGS: Left lower lobe consolidation and small pleural effusion. Heart size upper limits of taisha l. No overt failure. No pneumothorax. IMPRESSION: Left lower lobe infiltrate and small pleural effusion.
[2023-09-26 09:47] VITALS: TEMP 97.7
--- NOTE | 2023-09-26 10:53 | P.PN ---
Progress Note - Text Progress Note Date: 09/26/23 Follow-up Mediation Review Chief Complaint: I did not sleep last night Subjective: The patient noted that she was up all night. She could not sleep. The patient requested for Zyprexa. She been taking Rexulti in the morning. It is being changed to bedtime. The patient explained that two antipsychotic is not good for her. The patient understood and consented. The patient noted that she is feeling much better. She went to all the groups yesterday. She appeared in better spirits. She reported no side effects. Complaint since yesterday: No new complaints today. The patient is attending group. . The patient participation is adequate. The interaction with staff and peers is improved. The patient is compliant with treatment recommendations. Leading questions: The patient admitted to Depression and Anxiety. Denied SI or HI. Denied symptoms consistent with psychosis Sleep and Appetite: Fair. Change in family/ living/job/financial/daily routine: No change. Change in medical condition: No change. Change in medications: No change. Side effects from Medications: None. Allergies: No change. Objective- MSE: Alert and attentive. Orientation times three. Dressed and Groomed: Appropriately. Pleasant and cooperative. Psychomotor Activity: Normal. Speech: Normal in tone, quality, and quantity. Mood: Depressed and anxious. Affect: Consistent with mood. SI or HI: None. Perceptual disturbance: None. Thought Content: No paranoia or other delusional thinking noted. Thought Process: Normal. Cognition: Intact Judgment and Insight: Good AIMS: Normal. Labs: No new labs. Diagnosis: No change. Plan and Recommendations: Continue current Medications. Monitor MS and side effects of medications and adjust medications accordingly. Provide supportive psychotherapy. The patient provided psychoeducation and advised The patient provided Substance abuse counseling. Smoke cessation therapy. The patient to attend partida activities. CBC with Diff, CMP, TSH, Lipid Profile, HbA1c, EKG, Test ordered. Medication Consent with explanation of risk/benefits and side effects: Explained and obtained.
[2023-09-26] MEDS: MELOXICAM 7.5 MG TAB PO PRN (21:00)
[2023-09-26] MEDS: Brexpiprazole [Rexulti] 4 MG PO SCH (21:53)
[2023-09-26] MEDS: OLANZapine 5 MG TAB PO PRN (22:32)
[2023-09-27 07:23] VITALS: RESP 16
[2023-09-27 09:47] VITALS: BP 117/75; PULSE 94
--- NOTE | 2023-09-27 15:44 | P.DS ---
Providers Date of admission: 09/23/23 21:25 Expected date of discharge: 09/27/23 Attending physician: Tom Wolff MD Consults: 09/23/23 23:57 Consult Physician Routine Consulting Provider: Cipriano Rodríguez Consult Reason/Comments: H&P and medical Do you want consulting provider notified?: Yes, Notify in am Primary care physician: Cipriano Rodríguez MD - Discharge Diagnosis(es) (1) Major depressive disorder, recurrent severe without psychotic features Status: Acute Priority: High (2) PTSD (post-traumatic stress disorder) Status: Acute Priority: Medium Hospital Course: Discharge Summary HPI: Identifying Data: Ms. Atkinson is a 52 years old, single, white female, who lives in a house with her partner. Chief Complaint: I took overdose of pills History of Psychiatric Illness- The patient noted that she was in the hospital 2 months ago for depression. She was in the hospital for 10 days. The patient noted that she does not know what made her take overdose of pills. She attributed to domestic issues. The patient reported that she was feeling very sad, not sleeping, lost appetite, loss of interest, social isolation, crying, tired, hopeless, and helpless. The patient took overdose of Trazodone. The patient does not know who called the police. The police came to her home and brought her to the ER. The patient noted that she has been depressed since age 16. The patient noted that she did not receive any help till age 31. She was in out-pt treatment. She saw a counselor and a psychiatrist. At age 36 she was admitted to the hospital for depression. She has had 5-6 admissions since then. All these admissions were for Depression. She never experienced symptoms of hearing voices or feeling paranoid. She reported 2-3 suicidal behavior by cutting herself or taking overdose of pills. She reported taking Prozac, Depakote, Zoloft, Effexor, Paxil, Risperdal, Cymbalta, Klonopin, and Adderall. The patient noted that Rexulti works best for her depression. She has been diagnosed with PTSD, Bipolar disorder, Depression. Past Psychiatric History: As stated above. Past Medication History: As stated above. Leading questions: The patient admitted to Depression and Anxiety. Denied SI or HI. 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 Her longest sobriety is for 5 years. She smokes marijuana occasionally. Tobacco use: None. Past Medical history: Tachycardia. Hospital Course: After admission, the patient was involved in pharmacotherapy, partida milieu, and individual psychodynamic psychotherapy. The patient was started on her home medications. Zyprexa was stopped. The dose was titrated to obtain the desire effects. The patient tolerated medications well without any side effects. The patient was also involved in partida activities. The patient attended the groups and participated well. The patient interacted with peers and staff well. The patient slowly started showing improvement. The hospital course was uneventful. The patient symptoms of depression, suicidal and homicidal ideations abated. The psychosis improved. The patient was stable to be discharged to out-patient care. The patient did not have any guns or weapons in possession at home. MSE: Alert and attentive. Orientation times three Dressed and Groomed: Appropriately. Pleasant and cooperative. Psychomotor Activity: Normal. Speech: Normal in tone, quality, and quantity. Mood: Depressed and anxious. Affect; Sad and subdued. SI or HI: None. Perceptual disturbance: None. Thought Content: No paranoia or other delusional thinking noted. Thought Process: Normal. Cognition: Intact Judgment and Insight: Poor AIMS: Normal Diagnosis: Major depressive disorder, severe, recurrent. PTSD Plan: The patient to be discharged today. The patient has attained good improvement since admission. He is stable to be followed as an outpatient. The patient is not suicidal or Homicidal. He does not pose any harm to self or others. The patient remains at a greater risk of self-harm or harm to others than general population on a chronic basis due to psychiatric illness and substance abuse. The patient will continue taking following medication post discharge. The importance of medication compliance and maintaining regular appointments at psychiatric out-pt and PCP clinic was explained and encouraged. The patient was also advised to seek alcohol counseling and attend AA/NA meetings. The understood and agreed with the recommendations. steam trap worker to arrange for and conduct family meeting to ensure safety upon discharge and answer any questions. The transition social worker to arrange for patients follow-up appointments at [facility] for psychiatric care along with follow-up with PCP. The patient provided psychoeducation. Advised to call 911 or go to nearest ED or call this hospital in case of acute worsening of symptomatology, severe side effects or having suicidal, homicidal thoughts and feeling unsafe at home. Patient Condition at Discharge: Stable Plan - Discharge Summary Discharge Rx Participant: Yes New Discharge Prescriptions: Continue Ergocalciferol [Vitamin D2 (1250 Mcg = 84289 Iu)] 1,250 mcg PO WEEKLY Brexpiprazole [Rexulti] 4 mg PO DAILY Tolterodine ER [Detrol LA] 4 mg PO DAILY Gabapentin [Neurontin] 800 mg PO Q12H Gabapentin 400 mg PO DAILY@1400 Pantoprazole Sodium [Protonix] 40 mg PO DAILY Levothyroxine Sodium [Synthroid] 88 mcg PO DAILY clonazePAM [KlonoPIN] 1 mg PO BID PRN PRN Reason: Anxiety Prazosin [Minipress] 5 mg PO BID Albuterol Sulfate [Albuterol Sulfate Hfa] 2 puff INHALATION RT-QID PRN PRN Reason: Shortness Of Breath Meloxicam [Mobic] 15 mg PO DAILY PRN PRN Reason: Pain Propranolol HCl 80 mg PO BID Ferrous Sulfate [Iron (65 MG Elemental)] 325 mg PO DAILY Discontinued Dextroamphetamine/Amphetamine [Adderall] 20 mg PO BID OLANZapine [ZyPREXA] 5 mg PO HS Discharge Medication List Albuterol Sulfate [Albuterol Sulfate Hfa] 2 puff INHALATION RT-QID PRN 09/23/23 [History] Brexpiprazole [Rexulti] 4 mg PO DAILY 09/23/23 [History] Ergocalciferol [Vitamin D2 (1250 Mcg = 94950 Iu)] 1,250 mcg PO WEEKLY 09/23/23 [History] Ferrous Sulfate [Iron (65 MG Elemental)] 325 mg PO DAILY 09/23/23 [History] Gabapentin 400 mg PO DAILY@1400 09/23/23 [History] Gabapentin [Neurontin] 800 mg PO Q12H 09/23/23 [History] Levothyroxine Sodium [Synthroid] 88 mcg PO DAILY 09/23/23 [History] Meloxicam [Mobic] 15 mg PO DAILY PRN 09/23/23 [History] Pantoprazole Sodium [Protonix] 40 mg PO DAILY 09/23/23 [History] Prazosin [Minipress] 5 mg PO BID 09/23/23 [History] Propranolol HCl 80 mg PO BID 09/23/23 [History] Tolterodine ER [Detrol LA] 4 mg PO DAILY 09/23/23 [History] clonazePAM [KlonoPIN] 1 mg PO BID PRN 09/23/23 [History] Follow up Appointment(s)/Referral(s): [facility] [Outside] - 10/02/23 11:00 am ([facility] 10/02/2023 @ 11:00) Cipriano Rodríguez MD [Primary Care Provider] - 1-2 days Patient Instructions/Handouts: Depression (DC), Suicide Prevention (DC) Activity/Diet/Wound Care/Special Instructions: Avoid the use of street drugs and alcohol. Take all medications as prescribed. When you are in need of refills on your medications, please contact your medical provider and/or outpatient psychiatrist/provider to have this done. Please go to your scheduled outpatient appointment for aftercare treatment. If symptoms return or become worse, call the crisis line at and/or go to the nearest emergency room for evaluation. National Suicide Hotline 365 Discharge Disposition: HOME SELF-CARE
[2023-09-30] MEDS ORDERED: ERGOCALCIFEROL 1,250 MCG (50,000 IU) CAPSULE PO SCH (09:00)
== END 2023-09-27 13:50 | disposition home or self-care (01) | DRG 885 ==
LOC: EC 14:01 → 3MHU 21:25
PROVIDERS: ADMIT Psychiatry & Neurology Psychiatry; ATTEND Psychiatry & Neurology Psychiatry
DX: F33.2 Major depressive disorder, recurrent severe without psychotic features (principal); F43.10 Post-traumatic stress disorder, unspecified; G56.00 Carpal tunnel syndrome, unspecified upper limb; T43.212A Poisoning by selective serotonin and norepinephrine reuptake inhibitors, intentional self-harm, initial encounter; Z79.1 Long term (current) use of non-steroidal anti-inflammatories (NSAID); Z79.890 Hormone replacement therapy; Z79.899 Other long term (current) drug therapy; Z81.8 Family history of other mental and behavioral disorders; Z98.84 Bariatric surgery status
CPT/HCPCS: 36415; 71045; 80053; 80061; 80143; 80179; 80306; 80320; 81003; 81025; 82075; 83036; 84443; 85025; 85610; 87635; 90471; 90715; 93005; 99285

== ENCOUNTER 2024-02-14 09:53 | Emergency (ER) | payer MEDICARE ==
[2024-02-14 09:59] VITALS: RESP 18; TEMP 97.9
--- NOTE | 2024-02-14 10:18 | ED ---
Anxiety HPI - General Chief Complaint: Anxiety Stated Complaint: Anixety Time Seen by Provider: 02/14/24 09:59 Source: patient, EMS, RN notes reviewed Mode of arrival: EMS Limitations: no limitations - History of Present Illness Initial Comments: This is a 53-year-old female who presents to the emergency department for anxiety. Patient has a long psychiatric history including depressive disorder, anxiety, and bipolar disorder. She was admitted to the psychiatric unit here in September for depression and intentional overdose. States that she is supposed to be taking the same medications she was discharged with, but has not had them for the last 3 days. It is not entirely clear what happened to her medication. It sounds like she may have left them somewhere and was unable to get to them. States that she came here because she is anxious. She is in contact with her provider to try to get a refill, but just wants help with her anxiety currently. Denies any suicidal or homicidal ideations. MD Complaint: anxiety - Related Data Home Medications: Home Medications Medication Instructions Recorded Confirmed Albuterol Sulfate [Albuterol 2 puff INHALATION RT-QID PRN 09/23/23 02/14/24 Sulfate Hfa] Brexpiprazole [Rexulti] 4 mg PO DAILY 09/23/23 02/14/24 Gabapentin 400 mg PO DAILY@1400 09/23/23 02/14/24 Gabapentin [Neurontin] 800 mg PO Q12H 09/23/23 02/14/24 Levothyroxine Sodium [Synthroid] 88 mcg PO DAILY@0600 09/23/23 02/14/24 Meloxicam [Mobic] 15 mg PO DAILY 09/23/23 02/14/24 Pantoprazole Sodium [Protonix] 40 mg PO HS 09/23/23 02/14/24 Prazosin [Minipress] 5 mg PO BID@0800,199909/23/23 02/14/24 clonazePAM [KlonoPIN] 1 mg PO TID@06,13,18 09/23/23 02/14/24 Cyclobenzaprine [Flexeril] 10 mg PO BID PRN 02/14/24 02/14/24 Dextroamphetamine/Amphetamine 20 mg PO BID 02/14/24 02/14/24 [Adderall] FLUoxetine HCL [PROzac] 40 mg PO DAILY@0800 02/14/24 02/14/24 Fluticasone/Vilanterol [Breo 1 puff INHALATION RT-DAILY 02/14/24 02/14/24 Ellipta 100-25 Mcg Inhalr] Propranolol HCl [Inderal] 60 mg PO BID 02/14/24 02/14/24 Tiotropium Lynx [Spiriva] 18 mcg INHALATION RT-DAILY 02/14/24 02/14/24 Allergies/Adverse Reactions: Allergies Allergy/AdvReac Type Severity Reaction Status Date / Time codeine Allergy Itching Verified 02/14/24 12:52 Review of Systems ROS Statement: Those systems with pertinent positive or pertinent negative responses have been documented in the HPI. ROS Other: All systems not noted in ROS Statement are negative. Past Medical History Additional Past Medical History / Comment(s): tachycardia History of Any Multi-Drug Resistant Organisms: None Reported Past Surgical History: No Surgical Hx Reported Additional Past Surgical History / Comment(s): Bariatric Surgery 2019 Past Anesthesia/Blood Transfusion Reactions: No Reported Reaction Past Psychological History: Anxiety, Bipolar, Depression, PTSD Smoking Status: Never smoker Past Alcohol Use History: None Reported, Occasional Past Drug Use History: Marijuana General Exam Limitations: no limitations General appearance: alert, anxious Head exam: Present: atraumatic, normocephalic, normal inspection Respiratory exam: Present: normal lung sounds bilaterally. Absent: respiratory distress, wheezes, rales, rhonchi, stridor Cardiovascular Exam: Present: regular rate, normal rhythm, normal heart sounds. Absent: systolic murmur, diastolic murmur, rubs, gallop, clicks Neurological exam: Present: alert, oriented X3, CN II-XII intact Psychiatric exam: Present: anxious, flat affect Skin exam: Present: warm, dry, intact, normal color. Absent: rash Course Vital Signs 02/14/24 02/14/24 02/14/24 09:54 10:31 14:31 Temperature 97.9 F Pulse Rate 119 H 119 H 88 Respiratory 18 18 Rate Blood Pressure 129/88 110/77 116/81 O2 Sat by Pulse 96 97 98 Oximetry Medical Decision Making - Medical Decision Making This is a 53 year old female who presents to the emergency department for anxiety. Was pt. sent in by a medical professional or institution? @ -No Did you speak to anyone other than the patient for history? @ -No Did you review nursing and triage notes? @ -Yes, and I agree, it is accurate with regards to the patient's symptoms. Were old charts reviewed? @ -No Differential Diagnosis? @ -Differential Mental Health: Depression, anxiety, bipolar, psychosis, schizophrenia, borderline personality, situational depression, adjustment disorder, behavioral disorder, brain tumor, malingering, substance abuse, encephalopathy, medication reaction, dementia, hypothyroidism, degenerative neurologic disorder, lupus.... This is not meant to be all-inclusive list EKG interpreted by me (3pts min.)? @ -Not obtained X-rays interpreted by me (1pt min.)? @ -Not obtained CT interpreted by me (1pt min.)? @ -Not obtained U/S interpreted by me (1pt. min.)? @ -Not obtained What testing was considered but not performed? (CT, X-rays, U/S, labs)? Why? @ -None What meds were considered but not given? Why? @ -None Did you discuss the management of the patient with other professionals? @ -No Did you reconcile home meds? @ -No Was smoking cessation discussed for >3mins.? @ -No Was critical care preformed (if so, how long)? @ -No Were there social determinants of health that impacted care today? How? (Homelessness, low income, unemployed, alcoholism, drug addiction, transportation, low edu. Level, literacy, decrease access to med. care, nursing home, rehab)? @ -No Was there de-escalation of care discussed even if they declined? (Discuss DNR or withdrawal of care, Hospice)? @ -No What co-morbidities impacted this encounter? (DM, HTN, Smoking, COPD, CAD, Cancer, CVA, Hep., AIDS, mental health diagnosis, sleep apnea, morbid obesity)? @ -Depression, bipolar disorder Was patient admitted / discharged? @ -Discharged. Patient was essentially just requesting help for her active anxiety. She is already in the process of trying to get her medications refilled. She did not have any suicidal or homicidal ideations. EPS did briefly speak with the patient as well. Patient's anxiety was managed in the emergency department with her home doses of Klonopin and propranolol that she had missed. She felt substantially improved afterwards and requested discharge home. Patient will follow-up with her outpatient psychiatrist for ongoing care. Patient discharged home in stable condition. Case discussed with ED attending Dr. Lewis. Return precautions reviewed in depth, the patient is instructed to return to the emergency department with any new, worsening, or concerning symptoms. Patient verbalized understanding. Undiagnosed new problem with uncertain prognosis? @ -None Drug Therapy requiring intensive monitoring for toxicity (Heparin, Nitro, Insulin, Cardizem)? @ -None Were any procedures done? @ -None Diagnosis/symptom? @ -Anxiety Acute, or Chronic, or Acute on Chronic? @ -Acute Uncomplicated (without systemic symptoms) or Complicated (systemic symptoms)? @ -Uncomplicated Side effects of treatment? @ -None Exacerbation, Progression, or Severe Exacerbation] @ -Not applicable Poses a threat to life or bodily function? @ -No - Lab Data Lab Results 02/14/24 Range/Units 12:41 Urine Color Colorless Urine Appearance Clear (Clear) Urine pH 6.5 (5.0-8.0) Ur Specific [place] 1.005 (1.001-1.035) Urine Protein Negative (Negative) Urine Glucose (UA) Negative (Negative) Urine Ketones 1+ H (Negative) Urine Blood Negative (Negative) Urine Nitrite Negative (Negative) Urine Bilirubin Negative (Negative) Urine Urobilinogen <2.0 (<2.0) mg/dL Ur Leukocyte Esterase Negative (Negative) Urine Opiates Screen Not Detected (NotDetected) Ur Oxycodone Screen Not Detected (NotDetected) Urine Methadone Screen Not Detected (NotDetected) Ur Barbiturates Screen Not Detected (NotDetected) U Tricyclic Antidepress Detected H (NotDetected) Ur Phencyclidine Scrn Not Detected (NotDetected) Ur Amphetamines Screen Detected H (NotDetected) U Methamphetamines Scrn Not Detected (NotDetected) U Benzodiazepines Scrn Detected H (NotDetected) Urine Cocaine Screen Not Detected (NotDetected) U Marijuana (THC) Screen Detected H (NotDetected) Disposition Clinical Impression: Acute anxiety, Panic attack Disposition: HOME SELF-CARE Instructions (If sedation given, give patient instructions): Generalized Anxiety Disorder (ED) Additional Instructions: Return to the emergency department with any new, worsening, or concerning symptoms. Follow up with your primary care provider in 1-2 days. Is patient prescribed a controlled substance at d/c from ED?: No Referrals: None,Stated [REFERRING] - 1-2 days Time of Disposition: 14:02
[2024-02-14] MEDS: clonazePAM 0.5 MG TAB PO STA (10:28)
[2024-02-14] MEDS: PROPRANOLOL 40 MG TAB PO STA (10:29)
[2024-02-14 12:52] LABS: Appearance,Urine Clear (Clear); Bilirubin,Urine Negative (Negative); Blood,Urine Negative (Negative); Color,Urine Colorless; Glucose,Urine (UA) Negative (Negative); Ketones,Urine 1+ (Negative); Leukocyte Esterase,Urine Negative (Negative); Nitrite,Urine Negative (Negative); PH, Urine 6.5 (5.0-8.0); Protein,Urine Negative (Negative); Specific Gravity,Urine 1.005 (1.001-1.035); Urobilinogen,Urine <2.0 mg/dL (<2.0)
[2024-02-14 13:07] LABS: Amphetamine Screen,Urine Detected (NotDetected); Benzodiazepines Screen,Urine Detected (NotDetected); Cocaine Screen,Urine Not Detected (NotDetected); Methadone Screen, Urine Not Detected (NotDetected); Opiate Screen,Urine Not Detected (NotDetected); Phencyclidine Screen,Urine Not Detected (NotDetected); Tricyclic Antidepressant,Urine Detected (NotDetected)
[2024-02-14 13:08] LABS: Barbiturate Screen,Urine Not Detected (NotDetected); Oxycodone Screen, Urine Not Detected (NotDetected); Urn Cannabinoid Scrn Detected (NotDetected)
[2024-02-14 14:32] VITALS: BP 116/81; PULSE 88
== END 2024-02-14 14:32 | disposition home or self-care (01) ==
LOC: EC 09:53
DX: F41.0 Panic disorder [episodic paroxysmal anxiety] (principal); F41.9 Anxiety disorder, unspecified; Z88.5 Allergy status to narcotic agent
CPT/HCPCS: 80306; 81003; 82075; 99284

== ENCOUNTER 2024-07-05 23:14 | Inpatient (IN) | payer MEDICARE ==
--- NOTE | 2024-07-05 23:55 | ED ---
General Adult HPI - General Chief complaint: Psychiatric Symptoms Stated complaint: Mental health Time Seen by Provider: 07/05/24 23:16 Source: patient Mode of arrival: EMS Limitations: no limitations - History of Present Illness Initial comments: Dictation was produced using [employer] dictation software. please excuse any grammatical, word or spelling errors. Chief Complaint: 53-year-old female with suicidal behavior History of Present Illness: Patient 53-year-old female brought in by law enforcement for suicidal behavior. Patient allegedly left a suicide note. She overdosed on Flexeril pills. She took approximately ten 750 mg Flexeril pills throughout the day. Patient states she feels tired and embarrassed. Patient depressed. She does have a history of cutting herself. The ROS documented in this emergency department record has been reviewed and confirmed by me. Those systems with pertinent positive or negative responses have been documented in the HPI. All other systems are other negative and/or noncontributory. - Related Data Home Medications Medication Instructions Recorded Confirmed Albuterol Sulfate [Albuterol 2 puff INHALATION RT-QID PRN 09/23/23 02/14/24 Sulfate Hfa] Brexpiprazole [Rexulti] 4 mg PO DAILY 09/23/23 02/14/24 Gabapentin 400 mg PO DAILY@1400 09/23/23 02/14/24 Gabapentin [Neurontin] 800 mg PO Q12H 09/23/23 02/14/24 Levothyroxine Sodium [Synthroid] 88 mcg PO DAILY@0600 09/23/23 02/14/24 Meloxicam [Mobic] 15 mg PO DAILY 09/23/23 02/14/24 Pantoprazole Sodium [Protonix] 40 mg PO HS 09/23/23 02/14/24 Prazosin [Minipress] 5 mg PO BID@0800,199909/23/23 02/14/24 clonazePAM [KlonoPIN] 1 mg PO TID@06,13,18 09/23/23 02/14/24 Cyclobenzaprine [Flexeril] 10 mg PO BID PRN 02/14/24 02/14/24 Dextroamphetamine/Amphetamine 20 mg PO BID 02/14/24 02/14/24 [Adderall] FLUoxetine HCL [PROzac] 40 mg PO DAILY@0800 02/14/24 02/14/24 Fluticasone/Vilanterol [Breo 1 puff INHALATION RT-DAILY 02/14/24 02/14/24 Ellipta 100-25 Mcg Inhalr] Propranolol HCl [Inderal] 60 mg PO BID 02/14/24 02/14/24 Tiotropium [place] [Spiriva] 18 mcg INHALATION RT-DAILY 02/14/24 02/14/24 Allergies Allergy/AdvReac Type Severity Reaction Status Date / Time codeine Allergy Itching Verified 07/05/24 23:34 Review of Systems ROS Statement: Those systems with pertinent positive or pertinent negative responses have been documented in the HPI. ROS Other: All systems not noted in ROS Statement are negative. Past Medical History Additional Past Medical History / Comment(s): tachycardia History of Any Multi-Drug Resistant Organisms: None Reported Past Surgical History: No Surgical Hx Reported Additional Past Surgical History / Comment(s): Bariatric Surgery 2019 Past Anesthesia/Blood Transfusion Reactions: No Reported Reaction Past Psychological History: Anxiety, Bipolar, Depression, PTSD Smoking Status: Never smoker Past Alcohol Use History: None Reported, Occasional Past Drug Use History: Marijuana General Exam - General Exam Comments Initial Comments: PHYSICAL EXAM: General Impression: Alert and oriented x3, not in acute distress HEENT: Normocephalic atraumatic, extra-ocular movements intact, pupils equal and reactive to light bilaterally, mucous membranes moist. Cardiovascular: Heart regular rate and rhythm Chest: Able to complete full sentences, no retractions, no tachypnea Abdomen: abdomen soft, non-tender, non-distended, no organomegaly Musculoskeletal: Pulses present and equal in all extremities, no peripheral tameka a Motor: no focal deficits noted Neurological: CN II-XII grossly intact, no focal motor or sensory deficits noted Skin: Superficial abrasion to the left anterior forearm Psych: Normal affect and mood Limitations: no limitations Course Vital Signs 07/05/24 23:16 Temperature 96.8 F L Pulse Rate 88 Respiratory 17 Rate Blood Pressure 123/74 O2 Sat by Pulse 99 Oximetry EKG Findings - EKG Comments: EKG Findings:: My EKG interpretation: Ventricular rate 9, sinus rhythm,. 157, QRS 80, QTc 411. No LA prolongation, no QTC prolongation, no ST or T-wave changes noted. Overall, this EKG is unremarkable Medical Decision Making - Medical Decision Making Was pt. sent in by a medical professional or institution (Dr., PA, HARDBOARD GRINDER, urgent care, hospital, or assisted...) When possible be specific @ -No Did you speak to anyone other than the patient for history (EMS, parent, family, police, friend...)? What history was obtained from this source @ -No Did you review nursing and triage notes (agree or disagree)? Why? @ -I reviewed and agree with nursing and triage notes Were old charts reviewed (outside hosp., previous admission, EMS record, old EKG, old radiological studies, urgent care reports/EKG's, assisted records)? Report findings @ -No old charts were reviewed Differential Diagnosis (chest pain, altered mental status, abdominal pain women, abdominal pain men, vaginal bleeding, musculoskeletal, weakness, fever, dyspnea, syncope, headache, dizziness, GI bleed, back pain, seizure, CVA, palpatations, mental health)? @ -Differential Mental Health: Depression, anxiety, bipolar, psychosis, schizophrenia, borderline personality, situational depression, adjustment disorder, behavioral disorder, brain tumor, malingering, substance abuse, encephalopathy, medication reaction, dementia, hypothyroidism, degenerative neurologic disorder, lupus.... This is not meant to be all-inclusive list EKG interpreted by me (3pts min.). @ -Above X-rays interpreted by me (1pt min.). @ -None done CT interpreted by me (1pt min.). @ -None done U/S interpreted by me (1pt. min.). @ -None done What testing was considered but not performed or refused? (CT, X-rays, U/S, labs)? Why? @ -None What meds were considered but not given or refused? Why? @ -None Was smoking cessation discussed for >3mins.? @ -No Were there social determinants of health that impacted care today? How? (Homelessness, low income, unemployed, alcoholism, drug addiction, transportation, low edu. Level, literacy, decrease access to med. care, custodial, rehab)? @ -No Was there de-escalation of care discussed even if they declined (Discuss DNR or withdrawal of care, Hospice)? DNR status @ -No What co-morbidities impacted this encounter? (DM, HTN, Smoking, COPD, CAD, Cancer, CVA, ARF, Chemo, Hep., AIDS, mental health diagnosis, sleep apnea, morbid obesity)? @ -Illicit drug use Was patient admitted / discharged? Hospital course, mention meds given and route, prescriptions, significant lab abnormalities, going to OR and other pertinent info. @ -53-year-old female with suicidal behavior. Patient overdosed on Flexeril oral medications. Vital signs stable. EKG is unremarkable. Tox labs are nega tive. Patient pending medical clearance per poison control recommendations. Patient will be admitted to inpatient psych after EPS elevated patient found her to meet criteria for psych admission Did you discuss the management of the patient with other professionals (professionals i.e. , PA, HARDBOARD GRINDER, lab, RT, psych nurse, geriatric social worker, sports management intern, teacher, geographic area intelligence officer, counter caser)? Give summary @ -Case discussed with poison control. Recommended 2-hour observation to medical clearance. Was critical care preformed (if so, how long)? @ -No Undiagnosed new problem with uncertain prognosis? @ -No Drug Therapy requiring intensive monitoring for toxicity (Heparin, Nitro, Insulin, Cardizem)? @ -No Were any procedures done? @ -No Diagnosis/symptom? Acute, or Chronic, or Acute on Chronic? Uncomplicated (without systemic symptoms) or Complicated (systemic symptoms)? @ -Suicidal behavior Side effects of treatment? @ -No Exacerbation, Progression, or Severe Exacerbation? @ -No Poses a threat to life or bodily function? How? (Chest pain, [place], [place], pneumonia, PE, COPD, DKA, ARF, appy, cholecystitis, CVA, Diverticulitis, Homicidal, Suicidal, threat to staff... and all critical care pts) @ -yes - Lab Data Result diagrams: 07/06/24 00:11 07/06/24 00:11 Lab Results 07/06/24 07/06/24 07/06/24 Range/Units 00:11 00:11 00:11 WBC 5.1 (3.8-10.6) k/uL RBC 4.77 (3.80-5.40) m/uL Hgb 11.0 L (11.4-16.0) gm/dL Hct 34.8 (34.0-46.0) % MCV 72.8 L (80.0-100.0) fL MCH 23.0 L (25.0-35.0) pg MCHC 31.6 (31.0-37.0) g/dL RDW 16.5 H (11.5-15.5) % Plt Count 251 (150-450) k/uL MPV 6.5 Neutrophils % 53 % Lymphocytes % 35 % Monocytes % 6 % Eosinophils % 4 % Basophils % 1 % Neutrophils # 2.7 (1.3-7.7) k/uL Lymphocytes # 1.8 (1.0-4.8) k/uL Monocytes # 0.3 (0-1.0) k/uL Eosinophils # 0.2 (0-0.7) k/uL Basophils # 0.0 (0-0.2) k/uL Hypochromasia Marked Anisocytosis Slight Microcytosis Moderate Sodium 139 (137-145) mmol/L Potassium 4.0 (3.5-5.1) mmol/L Chloride 103 (98-107) mmol/L Carbon Dioxide 30 (22-30) mmol/L Anion Gap 6 mmol/L BUN 9 (7-17) mg/dL Creatinine 0.83 (0.52-1.04) mg/dL Est GFR (CKD-EPI)AfAm >90 (>60 ml/min/1.73 sqM) Est GFR (CKD-EPI)NonAf 82 (>60 ml/min/1.73 sqM) Glucose 97 (74-99) mg/dL Calcium 9.4 (8.4-10.2) mg/dL Magnesium 2.3 (1.6-2.3) mg/dL Total Bilirubin 0.7 (0.2-1.3) mg/dL AST 34 (14-36) U/L ALT 23 (4-34) U/L Alkaline Phosphatase 84 (38-126) U/L Total Protein 6.9 (6.3-8.2) g/dL Albumin 4.4 (3.5-5.0) g/dL Salicylates <1.0 mg/dL Urine Opiates Screen Not Detected (NotDetected) Ur Oxycodone Screen Not Detected (NotDetected) Urine Methadone Screen Not Detected (NotDetected) Acetaminophen <10.0 ug/mL Ur Barbiturates Screen Not Detected (NotDetected) U Tricyclic Antidepress Detected H (NotDetected) Ur Phencyclidine Scrn Not Detected (NotDetected) Ur Amphetamines Screen Detected H (NotDetected) U Methamphetamines Scrn Not Detected (NotDetected) U Benzodiazepines Scrn Detected H (NotDetected) Urine Cocaine Screen Not Detected (NotDetected) U Marijuana (THC) Screen Detected H (NotDetected) Serum Alcohol <10 mg/dL Disposition Clinical Impression: Attempted suicide Disposition: TRANSFER TO PSYCH HOSP/UNIT Condition: Serious Referrals: Desirae Burns MD [Primary Care Provider] - 1-2 days
[2024-07-06 00:27] LABS: Anisocytosis Slight; Basophils % (A) 1 %; Eosinophils # (A) 0.2 k/uL (0-0.7); Eosinophils % (A) 4 %; HCT 34.8 % (34.0-46.0); Hypochromasia Marked; Lymphocytes # (A) 1.8 k/uL (1.0-4.8); Lymphocytes % (A) 35 %; MCHC 31.6 g/dL (31.0-37.0); MCV 72.8 fL (80.0-100.0); Mean Platelet Volume 6.5; Microcytosis Moderate; Monocytes # (A) 0.3 k/uL (0-1.0); Monocytes % (A) 6 %; Neutrophils # (A) 2.7 k/uL (1.3-7.7); Neutrophils % (A) 53 %; Platelet Count 251 k/uL (150-450); RBC 4.77 m/uL (3.80-5.40); RDW 16.5 % (11.5-15.5); WBC 5.1 k/uL (3.8-10.6)
[2024-07-06 00:41] LABS: ALT 23 U/L (4-34); AST 34 U/L (14-36); Acetaminophen <10.0 ug/mL; African American GFR (CKD) >90 (>60 ml/min/1.73 sqM); Albumin 4.4 g/dL (3.5-5.0); Alcohol <10 mg/dL; Alkaline Phosphatase 84 U/L (38-126); Anion Gap 6 mmol/L; Blood Urea Nitrogen 9 mg/dL (7-17); Calcium 9.4 mg/dL (8.4-10.2); Carbon Dioxide 30 mmol/L (22-30); Chloride 103 mmol/L (98-107); Glucose 97 mg/dL (74-99); Magnesium 2.3 mg/dL (1.6-2.3); Non-African American GFR(CKD) 82 (>60 ml/min/1.73 sqM); Salicylate <1.0 mg/dL; Sodium 139 mmol/L (137-145); Total Bilirubin 0.7 mg/dL (0.2-1.3); Total Protein 6.9 g/dL (6.3-8.2)
[2024-07-06 00:43] LABS: Amphetamine Screen,Urine Detected (NotDetected); Barbiturate Screen,Urine Not Detected (NotDetected); Benzodiazepines Screen,Urine Detected (NotDetected); Cocaine Screen,Urine Not Detected (NotDetected); Methadone Screen, Urine Not Detected (NotDetected); Opiate Screen,Urine Not Detected (NotDetected); Oxycodone Screen, Urine Not Detected (NotDetected); Phencyclidine Screen,Urine Not Detected (NotDetected); Tricyclic Antidepressant,Urine Detected (NotDetected); Urn Cannabinoid Scrn Detected (NotDetected)
[2024-07-06] MEDS ORDERED: hydrOXYzine HCL 50 MG/ML 1 ML VIAL IM PRN (07:35)
[2024-07-06] MEDS ORDERED: IBUPROFEN 600 MG TAB PO PRN (07:35)
[2024-07-06] MEDS ORDERED: MAGNESIUM HYDROXIDE 2,400 MG/30 ML CUP PO PRN (07:35)
[2024-07-06] MEDS ORDERED: ACETAMINOPHEN TAB 325 MG TAB PO PRN (07:35)
[2024-07-06] MEDS ORDERED: hydrOXYzine HCL 25 MG TAB PO PRN (07:35)
[2024-07-06] MEDS: NICOTINE 14MG/24HR PATCH TRANSDERM SCH (09:50)
[2024-07-06] MEDS: clonazePAM 1 MG TAB PO ONE (09:51)
[2024-07-06] MEDS ORDERED: ALBUTEROL INHALER 60 PUFF/8 GM INHALER (MHU) INHALATION PRN (12:28)
[2024-07-06] MEDS ORDERED: CYCLOBENZAPRINE 10 MG TAB PO PRN (12:28)
[2024-07-06] MEDS ORDERED: MELOXICAM 7.5 MG TAB PO PRN (12:28)
[2024-07-06] MEDS ORDERED: methocarbamoL 750 MG TAB PO PRN (12:28)
[2024-07-06] MEDS ORDERED: OLANZapine 5 MG TAB PO PRN (12:36)
[2024-07-06] MEDS ORDERED: OLANZapine 10 MG VIAL IM PRN (12:36)
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
[2024-07-06] MEDS: LIDOCAINE 4% PATCH TOPICAL SCH (13:08)
[2024-07-06] MEDS: FERROUS SULFATE 325 MG TAB PO SCH (13:13)
[2024-07-06] MEDS: PROPRANOLOL 40 MG TAB PO SCH (13:13)
[2024-07-06] MEDS: LEVOTHYROXINE 88 MCG TAB PO SCH (13:13)
[2024-07-06] MEDS: PANTOPRAZOLE 40 MG TABLET PO SCH (13:13)
[2024-07-06] MEDS: ARIPiprazole 5 MG TAB PO SCH (13:13)
[2024-07-06] MEDS: clonazePAM 1 MG TAB PO PRN (13:14)
[2024-07-06] MEDS: OLANZapine 5 MG TAB PO SCH (13:43)
[2024-07-06] MEDS: GABAPENTIN 400 MG CAP PO SCH (16:22)
[2024-07-06] MEDS ORDERED: PRAZOSIN 5 MG PO SCH (21:00)
[2024-07-06] MEDS: SYMBICORT 80-4.5 MCG INHALER (MHU) INHALATION SCH (21:12)
[2024-07-06] MEDS: traZODone HCL 50 MG TAB PO SCH (21:13)
[2024-07-06] MEDS: OXYBUTYNIN 10 MG TAB.ER.24 PO SCH (21:13)
[2024-07-06] MEDS: PRAZOSIN 1 MG CAP PO SCH (21:13)
[2024-07-07] MEDS: TIOTROPIUM 2.5 MCG INHALER (MHU) INHALATION SCH (08:56)
--- NOTE | 2024-07-07 11:09 | P.PN ---
Progress Note - Text Progress Note Date: 07/07/24 Interval History: Patient was seen today was seen today wandering the hallways, she just finished showering. Agreeable to speak to racebook writer in the office today. Claims that she is doing better today, feels more stable with regards to her mood. She was less irritable during conversation. She was fairly polite directable. Claims that she was able to sleep a bit better last night however was requesting a higher dose of trazodone due to waking up on and off. Claims that she is not having any other side effects. We spoke more about the medication profiles. She claims that she has been going to groups, participating on the unit, appears to be more focused on her treatment today. Denies any suicidal homicidal ideations intent or plan denies any auditory or visual hallucinations. MENTAL STATUS EXAM: General Appearance: Patient appears to be mildly overweight, wearing glasses, several cuts superficial on her left arm, stated age is alert, attempts to cooperate. Patient appears to have improving hygiene and grooming. Behavior: Patient is seated without any agitated behavior. Less irritable, more cooperative Speech: Patient's speech is fluent and nonpressured. Mood/Affect: Patient reports their mood is improving mildly affect is congruent and less labile Suicidality/Homicidality: Patient denies having any homicidal ideation intent or plan. Denies any suicidal ideations intent or plan Perceptions: Patient denies any visual hallucinations and denies any auditory hallucinations Though content/process: There is no evidence of any delusional thought content and thought process is linear and goal-directed. Rambles at times, improving mildly Memory and concentration: AOX3, grossly intact for the purposes of this session Judgment and insight: Improving mild IMPRESSIONS: Mood disorder unspecified, rule out bipolar disorder versus major depressive disorder Borderline personality disorder PTSD Cannabis use disorder PLAN: -Patient is admitted under voluntary status to MHU for stabilization of psychiatric symptoms and safety. Patient has signed adult voluntary form and has not signed medication consent and is placed in patient's chart. -Medications : prazosin 3 mg nightly for nightmares/sleep, Abilify 5 mg daily for mood stabilization, increase trazodone 100 mg nightly for insomnia/mood, Klonopin 1 mg 3 times daily as needed for anxiety. Vistaril as needed for anxiety. -zyprexa PRN for agitation/aggression -NRT -not needed as patient does not smoke -SW on board for discharge planning. Encourage patient to participate in groups to work on coping skills. Likely discharge if patient is improving psychiatrically
[2024-07-07] MEDS: traZODone HCL 100 MG TAB PO SCH (21:42)
[2024-07-08 09:57] VITALS: RESP 16
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
[2024-07-08] MEDS: traZODone HCL 50 MG TAB PO SCH (20:49)
[2024-07-08 21:22] VITALS: BP 114/81; PULSE 99; TEMP 98
--- NOTE | 2024-07-08 21:49 | P.CONS ---
History of Present Illness - Reason for Consult Consult date: 07/08/24 - History of Present Illness Patient is a 53-year-old female that presented to the ED by law enforcement due to suicidal behavior. Patient was seen and evaluated in mental health unit with MHU RN present. Patient states she took around ten 750 mg Flexeril pills throughout the day. She allegedly left a suicide note as well. Patient admits to cannabis use. Denies any tobacco or alcohol use. Patient denies any fever, chills, night sweats, chest pain, shortness of breath, nausea, vomiting, diarrhea, urinary symptoms. During interview, patient denies any suicidal/homicidal ideation. Pertinent positives and negatives as discussed above, a complete review of systems was performed and all other systems are negative. Vitals: Signs Reviewed Physical Exam: General: nontoxic, no distress, appears at stated age Derm: warm, dry, intact Head: atraumatic, normocephalic, symmetric Eyes: EOMI, anicteric sclera Mouth: no lip lesion, mucus membranes moist Cardiovascular: S1 S2 reg, no murmur, rubs, or gallops Lungs: CTA bilateral, no rhonchi, no rales, no accessory muscle use Abdominal: soft, non-tender to palpataion, no appreciable organomegaly Extremities: no gross muscle atrophy, no edema, no contractures Neuro: Alert, Oriented, CNII-XII grossly intact, gait normal Psych: well appearing, appropriate affect Assessment and Plan: Cannabis use disorder Counseled patient on the importance of cessation Microcytic anemia Denies any active bleeding Iron panel ordered Bipolar versus major depressive disorder PTSD Borderline personality disorder Defer management to primary psychiatric service Dora Hendrix MD PGY-1 IM Dictation was produced using [employer] dictation software. please excuse any g rammatical, word or spelling errors. Past Medical History Additional Past Medical History / Comment(s): tachycardia History of Any Multi-Drug Resistant Organisms: None Reported Past Surgical History: No Surgical Hx Reported Additional Past Surgical History / Comment(s): Bariatric Surgery 2019 Past Anesthesia/Blood Transfusion Reactions: No Reported Reaction Smoking Status: Never smoker Medications and Allergies Home Medications Medication Instructions Recorded Confirmed Type Albuterol Sulfate [Albuterol 2 puff INHALATION RT-QID PRN 09/23/23 07/06/24 History Sulfate Hfa] Brexpiprazole [Rexulti] 4 mg PO DAILY 09/23/23 07/06/24 History Levothyroxine Sodium [Synthroid] 88 mcg PO DAILY 09/23/23 07/06/24 History Meloxicam [Mobic] 15 mg PO DAILY PRN 09/23/23 07/06/24 History Pantoprazole Sodium [Protonix] 40 mg PO DAILY 09/23/23 07/06/24 History Prazosin [Minipress] 5 mg PO BID 09/23/23 07/06/24 History clonazePAM [KlonoPIN] 1 mg PO TID PRN 09/23/23 07/06/24 History Cyclobenzaprine [Flexeril] 10 mg PO BID PRN 02/14/24 07/06/24 History Dextroamphetamine/Amphetamine 20 mg PO BID 02/14/24 07/06/24 History [Adderall] FLUoxetine HCL [PROzac] 40 mg PO DAILY 02/14/24 07/06/24 History Tiotropium [place] [Spiriva] 1 cap INHALATION RT-DAILY PRN 02/14/24 07/06/24 History Cholecalciferol (Vitamin D3) 1,250 mcg PO Q30D 07/06/24 07/06/24 History [Vitamin D3 (1250 Mcg = 50,000 Iu)] Disulfiram [Antabuse] 500 mg PO HS PRN 07/06/24 07/06/24 History Ferrous Sulfate [Feosol] 325 mg PO DAILY 07/06/24 07/06/24 History Fluticasone Propion/Salmeterol 1 puff INHALATION RT-BID 07/06/24 07/06/24 History [Fluticasone-Salmeterol 250-50] Gabapentin [Neurontin] 800 mg PO TID 07/06/24 07/06/24 History Lidocaine 5% Patch [Lidoderm] 1 patch TRANSDERM DAILY 07/06/24 07/06/24 History OLANZapine 5 mg PO Q12H 07/06/24 07/06/24 History Propranolol HCl 80 mg PO BID 07/06/24 07/06/24 History Ramelteon [Rozerem] 8 mg PO HS 07/06/24 07/06/24 History Tolterodine ER [Detrol LA] 4 mg PO HS 07/06/24 07/06/24 History buPROPion HCL [buPROPion HCL XL] 150 mg PO DAILY 07/06/24 07/06/24 History methocarbamoL [Robaxin-750] 750 mg PO TID PRN 07/06/24 07/06/24 History valACYclovir HCL [Valtrex] 1,000 mg PO BID 07/06/24 07/06/24 History Allergies Allergy/AdvReac Type Severity Reaction Status Date / Time codeine Allergy Itching Verified 07/06/24 09:46 Physical Exam Vitals: Vital Signs Temp Pulse Resp BP 07/08/24 09:00 97.5 F L 84 16 114/73 07/08/24 08:42 98 113/73 07/07/24 22:36 101 H 128/88 Results CBC & Chem 7: 07/06/24 00:11 07/06/24 00:11
[2024-07-09] MEDS: MAG HYDROX/AL HYDROX/SIMETH 355 ML BOTTLE PO PRN (09:39)
[2024-07-09] MEDS ORDERED: ONDANSETRON ODT 8 MG TAB.RAPDIS PO PRN (09:47)
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
[2024-07-09] MEDS: ONDANSETRON ODT 8 MG TAB.RAPDIS PO STA (11:13)
[2024-08-04] MEDS ORDERED: CHOLECALCIFEROL 125 MCG (5000 IU) TABLET PO SCH (09:00)
== END 2024-07-09 12:45 | disposition home or self-care (01) | DRG 885 ==
LOC: EC 23:14 → 3MHU 07-06 07:30
PROVIDERS: ADMIT Psychiatry & Neurology Psychiatry; ATTEND Psychiatry & Neurology Psychiatry
DX: F39 Unspecified mood [affective] disorder (principal); D50.9 Iron deficiency anemia, unspecified; F12.90 Cannabis use, unspecified, uncomplicated; F31.9 Bipolar disorder, unspecified; F41.9 Anxiety disorder, unspecified; F60.3 Borderline personality disorder; T48.1X2A Poisoning by skeletal muscle relaxants [neuromuscular blocking agents], intentional self-harm, initial encounter; F43.10 Post-traumatic stress disorder, unspecified; G47.00 Insomnia, unspecified; Z62.819 Personal history of unspecified abuse in childhood; Z79.1 Long term (current) use of non-steroidal anti-inflammatories (NSAID); Z79.890 Hormone replacement therapy; Z79.899 Other long term (current) drug therapy; Z91.52 Personal history of nonsuicidal self-harm; Z98.84 Bariatric surgery status
CPT/HCPCS: 36415; 80053; 80143; 80179; 80306; 80320; 82075; 83735; 85025; 87635; 93005; 99285